=== PATIENT | male | born 2000 | race African-American/Black ===

== ENCOUNTER 2022-12-07 16:41 | Emergency (ER) | payer OTHER, SELFPAY ==
[2022-12-07 17:29] VITALS: BP 142/82; PULSE 69; RESP 18; TEMP 36; O2SAT 97; BMI 27.1
--- NOTE | 2022-12-07 17:37 | ED.MALEGU ---
HPI - Male Genitourinary General Chief complaint: Urogenital-Male Stated complaint: sti check Time Seen by Provider: 12/07/22 17:37 Source: patient Mode of arrival: ambulatory Limitations: no limitations History of Present Illness HPI Narrative: 22-year-old male asymptomatic presenting requesting sexually transmitted infection check, patient reports he gets tested frequently last tested 4 months ago usually gets tested every 3 months and just wants to get tested. He does not think he has an STD at this time. Denies fevers, chills, nausea, vomiting, abdominal pain, penile pain, discharge, rashes. Related Data Allergies Allergy/AdvReac Type Severity Reaction Status Date / Time No Known Allergies Allergy Verified 12/07/22 17:29 Review of Systems Review of Systems: Constitutional : No Weight loss, No Fever, No Chills, No Fatigue, No Malaise ENT/Mouth : No sore throat, No Rhinorrhea Eyes: No Eye Pain, No Swelling, No Redness Cardiovascular : No Chest Pain, No SOB, No Dyspnea on Exertion, No Orthopnea, No Edema, No Palpitations Respiratory : No Cough, No Sputum, No Wheezing Gastrointestinal : No Nausea, No Vomiting, No Diarrhea, No Constipation, No abdominal Pain, No Hematochezia, No Melena Genitourinary : No Dysuria, No Urinary Frequency, No Hematuria, Musculoskeletal : No joint pain, No Myalgias, No Joint Swelling Skin : No Skin Lesions, No rash Neuro : No Weakness, No Numbness, No Dizziness, No Headache Psych : No Anxiety/Panic, No Depression All other systems reviewed and are negative Yes all other systems are reviewed and are negative [facility] Past Medical History Attestation statement: The following information was validated with the patient. Source: old records reviewed and nursing notes reviewed Physical Exam Vital Signs: Vital Signs: Last Vital Signs Temp 96.8 F 12/07/22 17:29 Pulse 69 12/07/22 17:29 Resp 18 12/07/22 17:29 BP 142/82 H 12/07/22 17:29 Pulse Ox 97 12/07/22 17:29 O2 Del Method Room Air 12/07/22 17:29 BMI result Body Mass Index 27.1 vss Appearance: Alert.? Oriented X3.? No acute distress.? Head: Normocephalic, atraumatic, no step-offs or deformities Eyes: Pupils equal, round and reactive to light.? CVS: Normal heart rate and rhythm.? Pulses normal.? Respiratory: No respiratory distress.? Breath sounds normal.? Abdomen: Soft and nontender.? Skin: Skin warm and dry.? Normal skin color.? Normal skin turgor.? Extremities 5/5 strength to bilateral upper and lower extremities sensitive exam: deferred Neuro: Oriented X 3.? No motor deficit.? No sensory deficit. CN 2-12 intact Course Reevaluation(s) Reevaluation #1: gonorrhea chlamydia pending. Patient does not want prophylactic treatment he has low suspicion for STD/STI. Educated patient on diagnosis and treatment plan, answered all question, patient verbalizes understanding. At this time patient will be discharged home, advised to return with new or worsening symptoms. Educated on worrisome signs and symptoms and when to return. At this time I feel comfortable discharge home. Time: 17:59 Medical Decision Making Medical Decision Making [facility] Narrative: [id number] 22-year-old male presents requesting STD testing, would not like prophylactic treatment. Physical exam benign concerns for possible sexually transmitted infection. No UTI symptoms unlikely UTI or cystitis. Plan NG/CT by urine Differential Diagnosis Differential Diagnoses: The differential diagnosis associated with the presentation includes Concerns for possible sexually transmitted infection. No UTI symptoms unlikely UTI or cystitis. Core Measures AMI core measures followed: Yes Measure exclusions: not indicated Critical Care Time Critical Care Time Critical Care Time: No Discharge Plan Discharge Clinical Impression: Screening for STD (sexually transmitted disease) Patient Disposition: Home, Self-Care Additional Instructions: Take your medications as prescribed. If you were prescribed antibiotics today, it is important that you take your medication to their entirety, do not skip any doses, do not finish them early. Follow-up with your primary care provider this week. Return to the emergency department with new or worsening symptoms. Such as fevers, chills, chest pain, shortness of breath, nausea, vomiting, dizziness, headache, vision changes, lethargy In case of emergency call 911 We will call you only if results are positive. Referrals: Physician,Unknown J [Primary Care Provider] - 2 days
[2022-12-08 09:44] LABS: CT PCR DETECTED (Not Detect.); NG PCR NOT DETECTED (Not Detect.)
== END 2022-12-07 18:07 | disposition home or self-care (01) ==
LOC: HO.ED 18:05
PROVIDERS: Physician Assistant; Emergency Provider Emergency Medicine; PCP Pediatrics
DX: Z11.3 Encounter for screening for infections with a predominantly sexual mode of transmission (principal)
CPT/HCPCS: 0353U; 99282; 99283